=== PATIENT | male | born 1995 ===

== ENCOUNTER 2019-01-31 09:59 | Emergency (ER) | payer MEDICAID ==
[~2019-01-31] VITALS: Ht 170.2 cm; Wt 74.8 kg
[2019-01-31] MEDS ORDERED: NAPR550 PO (10:28)
[2019-01-31] MEDS ORDERED: Amoxicillin500 MG PO (10:28)
== END 2019-01-31 10:34 | disposition home or self-care (01) ==
LOC: ER 09:59
DX: K02.9 Dental caries, unspecified (principal); Z79.899 Other long term (current) drug therapy; F17.200 Nicotine dependence, unspecified, uncomplicated
CPT/HCPCS: 99282

== ENCOUNTER 2019-01-31 21:01 | Emergency (ER) | payer MEDICAID ==
[~2019-01-31] VITALS: Ht 170.2 cm; Wt 74.8 kg
[~2019-01-31 21:01] MED LIST: Amoxicillin500 MG PO; NAPR550 PO
== END 2019-02-01 00:41 | disposition left against medical advice (07) ==
LOC: ER 21:01
DX: Z53.21 Procedure and treatment not carried out due to patient leaving prior to being seen by health care provider (principal); K08.89 Other specified disorders of teeth and supporting structures